=== PATIENT | female | born 1950 | race Caucasian/White ===

== ENCOUNTER 2016-12-28 21:53 | Emergency (ER) | payer OTHER ==
--- NOTE | 2016-12-28 23:02 | ED ORDER SUMMARY ---
..... Patient: TODD ROMERO OrderSheet [facility] VisitID: [id number] [address] [place] [address] 66y, F Registration Date/Time: 12/28/2016 ORDER SHEET Weight: 72.5 kg (stated) Allergies: No Known Drug Allergy GENERAL ORDERS: CT Head wo Cont Urgent (22:34 12/28/2016 HBivens A.R.N.P.) (Ack 22:37 IJurca ER Tech1) (22:56 HBivens A.R.N.P.) (Cancelled: Other22:56 HBivens A.R.N.P.) CT Sinus/Facial Bones wo Cont Urgent (22:35 12/28/2016 HBivens A.R.N.P.) (Ack 22:37 IJurca ER Tech1) (22:56 HBivens A.R.N.P.) (Cancelled: Other22:56 HBivens A.R.N.P.) MEDICATION ORDERS: Tdap IM 0.5 mL (NOW, per protocol) (22:27 12/28/2016 DDean R.N. per protocol) (Ack 22:30 MWinterer R.N.) (23:24 DDean R.N.) IV FLUIDS: ORDER SHEET NOTES: [Electronically signed by Edna CaseRSdNSdPSd (23:20 12/28/2016)] [Electronically signed by Graciela Corbett R.N. (23:25 12/28/2016)] [Electronically locked/signed by Graciela Corbett R.N. (23:25 12/28/2016)]
--- NOTE | 2016-12-28 23:02 | ED CLINICAL REPORT ---
Clinical Report - Physicians/Mid Levels [facility] [address] [place] [address] 12/28/2016 21:56 Patient: TODD ROMERO Time Seen: 22:20; upon arrival, initial patient contact, initial documentation, patient care assumed. Arrived- By private vehicle. Historian- patient and friend. HISTORY OF PRESENT ILLNESS Chief Complaint: INJURY TO HEAD. Location of injuries- face. The injury occurred just prior to arrival. (parking lot). Fell while walking and landed on the ground; tripped (tripped over a log in a parking lot). The patient complains of moderate pain. The patient sustained a moderate blow to the head. No neck pain, loss of consciousness or seizure. Not dazed. REVIEW OF SYSTEMS No loss of vision, chest pain or difficulty breathing. She sustained skin laceration. PAST HISTORY See nurses notes. PAST MEDICAL HX: Hypertension. Last tetanus: (20 years ago). SURGERY HX: . Tetanus immunization status is unknown. Anxiety problems. Alcoholism. SOCIAL HISTORY Never smoker. Alcohol use. Patient is a recovering alcoholic. No drug use. No recent travel. Is a local resident. FAMILY HISTORY No significant family medical history. ADDITIONAL NOTES The nursing notes have been reviewed with agreement regarding the chief complaint, HPI, ROS, PMH and patient medications and allergies. PHYSICAL EXAM Vital Signs: 12/28/2016 22:10 BP: 129/79. HR: 75. RR: 22. O2 saturation: 97%. Temp: 98.7 F. Pain level now: 5/10. Have been reviewed as normal and appear to be correct. Appearance: Alert. Anxious. No acute distress. (pt appears under the influence, pt wearing clothes under gown). Head: Head tender. Swelling of head present. Eyes: Pupils equal, round and reactive to light. EOM intact. Left periorbital area: mild tenderness, moderate swelling, subcutaneous 1.0 cm laceration, multiple small abrasions and large ecchymosis of the lateral aspect and supraorbital and infraorbital area of the periorbital area. SEE LACERATION PROCEDURE NOTE #1. No erythema, puncture wound or foreign body. No deformity. No entrapment of extraocular muscles or gaze palsy. ENT: No dental injury. Pharynx normal. Neck: Painless ROM. Non-tender. CVS: Normal heart rate and rhythm. Heart sounds normal. Pulses normal. Respiratory: Breath sounds normal. Chest nontender. Abdomen: Soft and nontender. No organomegaly. Back: No tenderness. ROM normal. Skin: Skin intact. Skin warm and dry. Normal skin color. Normal skin turgor. Extremities: Abnormal inspection. Extremities not atraumatic. Pelvis stable. No lower extremity edema. (pt refusing to take off pants, stating she was embarrassed and she knows they are alright). Neuro: Oriented X 3. Mood/affect normal. Speech normal. No motor deficit. Normal gait. No sensory deficit. PROGRESS AND PROCEDURES Laceration Repair: Location: face. Length: 1 cm. Complexity: simple (closed with tissue adhesive). Wound depth/shape- subcutaneous and linear and involving fascia. Contamination present. It is not clean. No foreign body or contused tissue present. No tissue loss. Exam note: wood stuck in face, but none seen in actual lac. Distal neuro/vascular/tendon status normal. Tendon not examined. No tendon deficit or laceration or tendon injury. Prepped with Betadine. Wound explored, cleansed, irrigated and examined to the base in bloodless field with normal saline. Wound not debrided. wood picked out of skin around lac, but none in lac itself. Closure of superficial layer: (dermabond). Skin adhesive used. Post-procedure: she is stable and there are no complications. Bleeding is controlled and neuro-vascular status is intact distal to the wound. Tetanus immunization given. Course of Care: called into room by pt's friend, pt telling me she is having major anxiety over having the ct done, and she would like sedative, request denied with explanation and pt agreed, pt stating she may start screaming and have full blown panic attack in ct, agreed to cancel ct, pt to go home with friend for head watch. Patient counseled regarding the patient's stable condition and diagnosis. 23:01. Differential Diagnosis: Other possible considerations: fall, head injury, fx, lacs, abrasions, contusions. Above considerations are based on history and physical exam. Differential diagnosis was discussed with patient. Disposition: Discharged home in good and improved condition (23:01). Condition: good and stable. CLINICAL IMPRESSION Fall on same level by tripping. Single deep laceration to the left periorbital area.Treatment of laceration not delayed. No infection or foreign body present. Single contusion with soft tissue hematoma and abrasion to the left periorbital area. INSTRUCTIONS Apply ice for 20 minutes four times a day for two days until better. Don't apply ice directly to skin. Protect wound and keep wound area clean. Soak in warm soapy water. Warnings: HEAD INJURY PRECAUTIONS: An observer must check on the patient frequently for the next 24 hours to confirm that the patient responds as expected, is not confused, has no new weakness or numbness, and has no other problems. TETANUS: You were given a tetanus shot during your visit. Make a note for future reference. GENERAL WARNINGS: Return or contact your physician immediately if your condition worsens or changes unexpectedly, if not improving as expected, or if other problems arise. Specifically return if problem worsens. Follow-up: Follow up with your doctor in about three days even if well and for wound check. Call for an appointment. Summary of care provided to patient. Understanding of the discharge instructions verbalized by patient. (Electronically signed by Edna Case A.R.N.P. 12/28/2016 23:20)
--- NOTE | 2016-12-28 23:02 | ED ORDER SUMMARY ---
..... Patient: TODD ROMERO OrderSheet [facility] VisitID: [id number] [address] [place] [address] 66y, F Registration Date/Time: 12/28/2016 ORDER SHEET Weight: 72.5 kg (stated) Allergies: No Known Drug Allergy GENERAL ORDERS: CT Head wo Cont Urgent (22:34 12/28/2016 HBivens A.R.N.P.) (Ack 22:37 IJurca ER Tech1) (22:56 HBivens A.R.N.P.) (Cancelled: Other22:56 HBivens A.R.N.P.) CT Sinus/Facial Bones wo Cont Urgent (22:35 12/28/2016 HBivens A.R.N.P.) (Ack 22:37 IJurca ER Tech1) (22:56 HBivens A.R.N.P.) (Cancelled: Other22:56 HBivens A.R.N.P.) MEDICATION ORDERS: Tdap IM 0.5 mL (NOW, per protocol) (22:27 12/28/2016 DDean R.N. per protocol) (Ack 22:30 MWinterer R.N.) (23:24 DDean R.N.) IV FLUIDS: ORDER SHEET NOTES: [Electronically signed by Edna CaseRSdNSdPSd (23:20 12/28/2016)] [Electronically signed by Graciela Corbett R.N. (23:25 12/28/2016)] [Electronically locked/signed by Graciela Corbett R.N. (23:25 12/28/2016)]
--- NOTE | 2016-12-28 23:02 | ED NURSING NOTES ---
Clinical Report - Nurses [facility] [address] [place] [address] 12/28/2016 21:56 Patient: TODD ROMERO TRIAGE Triage time 2210. Acuity: LEVEL 3. Chief Complaint: FALL (slipped/tripped on log in parking lot. hit left side of face and chin on ground. Has 2 inch lac to left eye brow, abrasions and swelling to left side of face. Crack visable in front tooth). JACKIE COMA SCORE: [place] Coma Scale: 15- eyes open spontaneously (4); best verbal response- oriented x 4 (5); best motor response- obeys commands (6). --22:25 Graciela Corbett R.N. 22:10 12/28/16. BP: 129/79. HR: 75. RR: 22. O2 saturation: 97%. Temp: 98.7 F. Pain level now: 02/20. --22:25 Graciela Corbett R.N. Weight: 72.5 kg stated. Height/Length: 65 inches Per Patient. BMI: 26.6. --22:21 Graciela Corbett R.N. Medications Furosemide Oral 5mg, daily. --22:24 Graciela Corbett R.N. high blood pressure medicine. --22:25 Graciela Corbett R.N. Allergies No Known Drug Allergy. --22:23 Graciela Corbett R.N. History Arrived by private vehicle. Historian: patient. Accompanied by friend. No primary care physician. Location of injuries: left cheek, left periorbital area, left eyebrow area, left knee and left leg. No loss of consciousness. No neck pain. PAST MEDICAL HX: Hypertension. Last tetanus: (20 years ago). SURGERY HX: . SOCIAL HX: Never smoker. Alcohol use. (sober for 8 years). --22:25 Graciela Corbett R.N. Interventions ID band on patient. To treatment room. --22:25 Graciela Corbett R.N. PHYSICAL ASSESSMENT 22:26 12/28/16. Ambulatory to room. Patient gowned. GENERAL / NEURO / PSYCH: Alert. Oriented X 4. HEENT: Left cheek: abrasion. Left eyebrow area: tenderness and subcutaneous 2.0 cm laceration. RESPIRATORY: Respirations not labored. CVS: Capillary refill less than 2 seconds. EXTREMITIES: Left leg: abrasion. SKIN: Skin is warm and dry. --22:26 Graciela Corbett R.N. NURSING PROGRESS NOTES 22:15. Cold pack applied. Patient gowned. Patient identifiers checked. Call light placed in reach. Side rails up. Bed placed in lowest position. --22:27 Graciela Corbett R.N. 22:45. WOUND REPAIR: Wound repair performed by INJECTION MOLD TOOLING TECHNICIAN. Assisted by one tech. The wound is located on the (left eyebrow). Preparation. Wound cleansed per INJECTION MOLD TOOLING TECHNICIAN with sterile saline and irrigated per INJECTION MOLD TOOLING TECHNICIAN with sterile saline using a syringe. Procedure: wound repaired with skin adhesive. Post-procedure: she was stable, no complications, bleeding controlled and neuro-vascular status intact distal to wound. Total time of assist / procedure: 15 minutes. --23:11 Graciela Corbett R.N. 23:00 12/28/2016 TDAP IM 0.5 mL given. (Lot#: [id number], expiration date: 07/21/2018, Deputy District Customs Director: [employer]). Given in the left deltoid. Vaccine information statement provided to the patient (SUNSHINE Robb). --23:24 Graciela Corbett R.N. DISPOSITION / DISCHARGE 23:08. Condition at departure: improved and stable. No learning barriers present. Discharge instructions provided and reviewed with english drawer and the patient. Reviewed warnings (head injury). Reviewed medication(s) (tylenol or motrin for pain). Reviewed wound care instructions (ice, rest,). Patient and english drawer verbalized understanding. Written instructions provided in [place]. The patient was discharged home and accompanied by english drawer. She left the Emergency Department ambulatory and via private vehicle. Director Business Intelligence driving. JACKIE COMA SCORE: [place] Coma Scale: 15- eyes open spontaneously (4); best verbal response- oriented x 4 (5); best motor response- obeys commands (6). --23:13 Graciela Corbett R.N. 23:08 12/28/16. BP: 134/75. HR: 72. RR: 18. O2 saturation: 99%. Temp: deferred. Pain level now: 11/23. --23:13 Graciela Corbett R.N. Locked/Released at 12/28/2016 23:25 by Graciela Corbett R.N.
--- NOTE | 2016-12-28 23:02 | ED NURSING NOTES ---
Clinical Report - Nurses [facility] [address] [place] [address] 12/28/2016 21:56 Patient: TODD ROMERO TRIAGE Triage time 2210. Acuity: LEVEL 3. Chief Complaint: FALL (slipped/tripped on log in parking lot. hit left side of face and chin on ground. Has 2 inch lac to left eye brow, abrasions and swelling to left side of face. Crack visable in front tooth). JACKIE COMA SCORE: [place] Coma Scale: 15- eyes open spontaneously (4); best verbal response- oriented x 4 (5); best motor response- obeys commands (6). --22:25 Graciela Corbett R.N. 22:10 12/28/16. BP: 129/79. HR: 75. RR: 22. O2 saturation: 97%. Temp: 98.7 F. Pain level now: 02/20. --22:25 Graciela Corbett R.N. Weight: 72.5 kg stated. Height/Length: 65 inches Per Patient. BMI: 26.6. --22:21 Graciela Corbett R.N. Medications Furosemide Oral 5mg, daily. --22:24 Graciela Corbett R.N. high blood pressure medicine. --22:25 Graciela Corbett R.N. Allergies No Known Drug Allergy. --22:23 Graciela Corbett R.N. History Arrived by private vehicle. Historian: patient. Accompanied by friend. No primary care physician. Location of injuries: left cheek, left periorbital area, left eyebrow area, left knee and left leg. No loss of consciousness. No neck pain. PAST MEDICAL HX: Hypertension. Last tetanus: (20 years ago). SURGERY HX: . SOCIAL HX: Never smoker. Alcohol use. (sober for 8 years). --22:25 Graciela Corbett R.N. Interventions ID band on patient. To treatment room. --22:25 Graciela Corbett R.N. PHYSICAL ASSESSMENT 22:26 12/28/16. Ambulatory to room. Patient gowned. GENERAL / NEURO / PSYCH: Alert. Oriented X 4. HEENT: Left cheek: abrasion. Left eyebrow area: tenderness and subcutaneous 2.0 cm laceration. RESPIRATORY: Respirations not labored. CVS: Capillary refill less than 2 seconds. EXTREMITIES: Left leg: abrasion. SKIN: Skin is warm and dry. --22:26 Graciela Corbett R.N. NURSING PROGRESS NOTES 22:15. Cold pack applied. Patient gowned. Patient identifiers checked. Call light placed in reach. Side rails up. Bed placed in lowest position. --22:27 Graciela Corbett R.N. 22:45. WOUND REPAIR: Wound repair performed by DIRECT MARKETING COORDINATOR. Assisted by one tech. The wound is located on the (left eyebrow). Preparation. Wound cleansed per DIRECT MARKETING COORDINATOR with sterile saline and irrigated per DIRECT MARKETING COORDINATOR with sterile saline using a syringe. Procedure: wound repaired with skin adhesive. Post-procedure: she was stable, no complications, bleeding controlled and neuro-vascular status intact distal to wound. Total time of assist / procedure: 15 minutes. --23:11 Graciela Corbett R.N. 23:00 12/28/2016 TDAP IM 0.5 mL given. (Lot#: [id number], expiration date: 07/21/2018, Wheelchair Van Driver: [employer]). Given in the left deltoid. Vaccine information statement provided to the patient (SUNSHINE Robb). --23:24 Graciela Corbett R.N. DISPOSITION / DISCHARGE 23:08. Condition at departure: improved and stable. No learning barriers present. Discharge instructions provided and reviewed with bessemer converter blower and the patient. Reviewed warnings (head injury). Reviewed medication(s) (tylenol or motrin for pain). Reviewed wound care instructions (ice, rest,). Patient and bessemer converter blower verbalized understanding. Written instructions provided in [place]. The patient was discharged home and accompanied by bessemer converter blower. She left the Emergency Department ambulatory and via private vehicle. Senior Ux Designer driving. JACKIE COMA SCORE: [place] Coma Scale: 15- eyes open spontaneously (4); best verbal response- oriented x 4 (5); best motor response- obeys commands (6). --23:13 Graciela Corbett R.N. 23:08 12/28/16. BP: 134/75. HR: 72. RR: 18. O2 saturation: 99%. Temp: deferred. Pain level now: 11/23. --23:13 Graciela Corbett R.N. Locked/Released at 12/28/2016 23:25 by Graciela Corbett R.N.
--- NOTE | 2016-12-28 23:26 | ED MAR SUMMARY ---
..... Medication Administration Record [facility] [address] [place] [address] Patient: TODD ROMERO Visit ID: [id number] 66y, F Weight: 72.5 kg Height/Length: 65 in BMI: 26.6 ALLERGIES: No Known Drug Allergy Given 23:00 12/28/2016 Aric, Graciela RSdN. Medication Administered: TDAP [IM], Dose: 0.5 mL IM. Medication Ordered: Tdap IM 0.5 mL (NOW, per protocol).
--- NOTE | 2016-12-28 23:26 | ED MED RECONCILIATION SUMMARY ---
Patient: TODD ROMERO Medication Reconciliation Report [facility] VisitID: [id number] [address] [place] [address] 66y, F Registration Date/Time: 12/28/2016 Weight: 72.5 kg Height/Length: 65 in. BMI: 26.6 ALLERGIES: No Known Drug Allergy The patient's Home Medications are listed below: THE FOLLOWING MEDICATIONS NEED TO BE RECONCILED: Furosemide Oral 5mg, daily high blood pressure medicine The source(s) of the original Home Medication information: Not obtained. The following Medications were given to the patient in the Emergency Department: TDAP [IM] IM 0.5 mL, administered: 12/28/2016 11:00:00 PM The following Medications were prescribed to the patient: None.
--- NOTE | 2016-12-28 23:26 | ED MED RECONCILIATION SUMMARY ---
Patient: TODD ROMERO Medication Reconciliation Report [facility] VisitID: [id number] [address] [place] [address] 66y, F Registration Date/Time: 12/28/2016 Weight: 72.5 kg Height/Length: 65 in. BMI: 26.6 ALLERGIES: No Known Drug Allergy The patient's Home Medications are listed below: THE FOLLOWING MEDICATIONS NEED TO BE RECONCILED: Furosemide Oral 5mg, daily high blood pressure medicine The source(s) of the original Home Medication information: Not obtained. The following Medications were given to the patient in the Emergency Department: TDAP [IM] IM 0.5 mL, administered: 12/28/2016 11:00:00 PM The following Medications were prescribed to the patient: None.
--- NOTE | 2016-12-28 23:26 | ED DISCHARGE INSTRUCTIONS ---
Patient: TODD ROMERO General Instructions [facility] VisitID: [id number] [place] [address] 66y, F Registration Date/Time: 12/28/2016 Fall on same level by tripping. Single deep laceration to the left periorbital area.Treatment of laceration not delayed. No infection or foreign body present. Single contusion with soft tissue hematoma and abrasion to the left periorbital area. INSTRUCTIONS Apply ice for 20 minutes four times a day for two days until better. Don't apply ice directly to skin. Protect wound and keep wound area clean. Soak in warm soapy water. Warnings: HEAD INJURY PRECAUTIONS: An observer must check on the patient frequently for the next 24 hours to confirm that the patient responds as expected, is not confused, has no new weakness or numbness, and has no other problems. TETANUS: You were given a tetanus shot during your visit. Make a note for future reference. GENERAL WARNINGS: Return or contact your physician immediately if your condition worsens or changes unexpectedly, if not improving as expected, or if other problems arise. Specifically return if problem worsens. Follow-up: Follow up with your doctor in about three days even if well and for wound check. Call for an appointment. Summary of care provided to patient. Understanding of the discharge instructions verbalized by patient. ADDITIONAL INFORMATION Mechanical Fall You have had a fall today. It appears that the cause is mechanical. That means that you slipped, tripped or lost your balance. If your fall had been due to fainting or a seizure, further tests would be required. Home Care: Rest today and resume your normal activities when you are feeling back to normal. If you were injured during the fall, follow the advice from your doctor regarding care of your injury. You may use acetaminophen (Tylenol) or ibuprofen (Motrin, Advil) to control pain, unless another pain medicine was prescribed. [NOTE: If you have chronic liver or kidney disease or ever had a stomach ulcer or GI bleeding, talk with your doctor before using these medicines.] Fall Prevention: Was there anything that caused your fall that can be fixed, removed, or replaced? Make your home safe by keeping walkways clear of objects you may trip over. Use non-slip pads under rugs. Do not walk in poorly lit areas. Do not stand on chairs or wobbly ladders. Use caution when reaching overhead or looking upward. This position can cause a loss of balance. Be sure your shoes fit properly, have non-slip bottoms and are in good condition. Be cautious when going up and down curbs, and walking on uneven sidewalks. If your balance is poor, consider using a cane or walker. Stay as active as you can. Balance, flexibility, strength, and endurance all come from exercise. They all play a role in preventing falls. Follow Up with your doctor or as advised by our staff. Get Prompt Medical Attention if any of the following occur: Repeated mechanical falls, or unexplained falls Dizziness, fainting or seizure Severe headache Chest pain or shortness of breath Palpitations (very rapid or very slow or irregular heartbeat) Blood in vomit, stools (black or red color) Weakness of an arm or leg or one side of the face Difficulty with speech or vision Laceration, Face (Suture Or Tape) Alaceration is a cut through the skin. This will require stitches if it is deep. Minor cuts may be treated with surgical tape. Home care The following guidelines will help you care for your laceration at home: If a bandage was applied and it becomes wet or dirty, replace it. Otherwise, leave it in place for the first 24 hours, then change it once a day or as directed. If sutures were used, clean the wound daily: After removing the bandage, wash the area with soap and water. Use a wet cotton swab to loosen and remove any blood or crust that forms. After cleaning, keep the wound clean and dry. Talk with your doctor before applying any antibiotic ointment to the wound. Reapply a fresh bandage. You may remove the bandage to shower as usual after the first 24 hours, but do not soak the area in water (no swimming) until the sutures are removed. If surgical tape was used, keep the area clean and dry. If it becomes wet, blot it dry with a towel. The doctor may prescribe an antibiotic cream or ointment to prevent infection. Do not stop taking this medication until you have have finished the prescribed course or the doctor tells you to stop. The doctor may also prescribe medications for pain. Follow the doctor's instructions for taking these medications.If you have chronic liver or kidney disease or ever had a stomach ulcer or GI bleeding, talk with your doctor before using these medicines. Follow-up care Follow up with your health care provider. Most facial cuts heal in five days with no problem. However, even with proper treatment, a wound infection sometimes occurs. Therefore, check the wound daily for the warning signs listed below. Stitches should not be left in the face for more thanfivedays; otherwise, permanent stitch mirza may form. If surgical tape closures were used, you may remove them yourself afterfivedays, if they have not fallen off by then. When to seek medical care Get prompt medical attention if any of these occur: Increasing pain in the wound Redness, swelling, or pus coming from the wound If sutures come apart or fall out before 5 days If the surgical tape closures fall off before 5 days, or the wound edges reopen Fever of 100.4F (38C) or higher, or as directed by your health care provider Bleeding not controlled by direct pressure Laceration, Face(Skin Glue) A laceration is a cut through the skin. A laceration on your face hasbeen closed with a type of skin glue. Home Care Medications: Acetaminophen (Tylenol) or ibuprofen (Motrin, Advil) may be taken for pain, unless another pain medicine was prescribed. NOTE: If you have chronic liver or kidney disease or ever had a stomach ulcer or GI bleeding, talk with your doctor before using these medications. General Care: Keep the wound clean and dry. You may shower or bathe as usual, but do not use soaps, lotions, or ointments on the wound area. Do not scrub the wound. After bathing, pat the wound dry with a soft towel. Do not scratch, rub, or pick at the film. Do not place tape directly over the film. Do not apply liquids (such as peroxide), ointments, or creams to the wound while the film is in place. Most facialskin wounds heal without problems. However, an infection sometimes occurs despite proper treatment. Therefore, watch for the signs of infection listed below. Follow Up as directed by the doctor or our staff. The skin glue film will fall off naturally in 5 to 10 days. Get Prompt Medical Attention if any of the following occur: Signs of infection: Fever of 100.4F (38) or higher, or as directed by your healthcare provider Increasing pain in the wound Increasing redness or swelling Pus coming from the wound Wound bleeds more than a small amount or bleeding doesnt stop Wound edges come apart Eye Contusion You have a CONTUSION of your eye. This can cause swelling and bruising of the lids (black eye) and may also cause bleeding in the white part of the eye. The bruising and lid swelling may increase over the first 12 hours. The lid swelling should start to go down after 1-2 days. The lid bruising may take 1-2 weeks to disappear. Home Care: Make an ice pack (ice cubes in a plastic bag, wrapped in a towel) and apply for 20 minutes every 1-2 hours the first day. Continue this 3-4 times a day until the swelling starts to go down. You may use acetaminophen (Tylenol) or ibuprofen (Motrin, Advil) to control pain, unless another pain medicine was prescribed. [NOTE:If you have chronic liver or kidney disease or ever had a stomach ulcer or GI bleeding, talk with your doctor before using these medicines.] Follow Up with your doctor or this facility if you are not improving within the next THREE days. [NOTE: If X-rays were taken, they will be reviewed by a radiologist. You will be notified of any new findings that may affect your care.] Get Prompt Medical Attention if any of the following occur: Increasing eye pain Unable to open eyelid after 2 days, due to swelling Any sudden changes in your vision Light flashes Floaters (small dots or strings that seem to be moving across your field of vision) Eye pain, redness, or discharge from your eyelid Blurriness that lasts more than 24 hours Dark spots in your field of vision Halos around lights Dimness of vision Partial or complete loss of vision Head Injury With Wake-Up (Adult) You have had a head injury. It does not appear serious at this time. Symptoms of a more serious problem (concussion, bruising, or bleeding in the brain) may appear later. Therefore, watch for the WARNING SIGNS listed below. Home Care: During the next 24 hours someone must stay with you. This person should wake you every 2 hours to check for the signs below. If you have swelling of the face or scalp, apply an ice pack (ice cubes in a plastic bag, wrapped in a towel) for 20 minutes every 1-2 hours until the swelling starts to go down. Do not use aspirin or ibuprofen (Motrin, Advil) after a head injury. You may use acetaminophen (Tylenol) to control pain, unless another pain medicine was prescribed. [NOTE: If you have chronic liver or kidney disease or ever had a stomach ulcer or GI bleeding, talk with your doctor before using these medicines.] For the next 24 hours: Do not take alcohol, sedatives, or medicines that make you sleepy. Do not drive or operate machinery. Avoid strenuous activities. No lifting or straining. If you have had any symptoms of a concussion today (nausea, vomiting, dizziness, confusion, headache, memory loss, or you were knocked out), do not return to sports or any activity that could result in another head injury until all symptoms are gone and you have been cleared by your doctor. A second head injury before fully recovering from the first one can lead to serious brain injury. Follow Up with your doctor if symptoms are not improving after 24 hours, or as directed. [NOTE: A radiologist will review any X-rays or CT scans that were taken. We will notify you of any new findings that may affect your care.] Get Prompt Medical Attention if any of the following WARNING SIGNS occur: Repeated vomiting Severe or worsening headache or dizziness Unusual drowsiness, or unable to awaken as usual Confusion or change in behavior or speech, memory loss, blurred vision Convulsion (seizure) Increasing scalp or face swelling Redness, warmth or pus from the swollen area Fluid drainage or bleeding from the nose or ears Diphtheria Toxoid Adsorbed, Pertussis Vaccine, Acellular (Adsorbed), Tetanus Toxoid, Adsorbed Suspension for injection What is this medicine? DIPHTHERIA and TETANUS TOXOIDS; PERTUSSIS VACCINE (dif THEER ee uh and TET n us TOK soids; per TUS iss vak SEEN) is used to prevent diphtheria, tetanus, and pertussis infections. How should I use this medicine? This vaccine is for injection into a muscle. It is given by a health care transition manager. A copy of Vaccine Information Statements will be given before each vaccination. Read this sheet carefully each time. The sheet may change frequently. Talk to your logistics clerk regarding the use of this vaccine in children. While the DTP vaccine may be given to children ages 6 weeks to 7 years and the Tdap vaccine may be given to children at least 10 years old, precautions do apply. What side effects may I notice from receiving this medicine? Side effects that you should report to your doctor or health care transition manager as soon as possible: allergic reactions like skin rash, itching or hives, swelling of the face, lips, or tongue breathing problems fever of 103 degrees F or more flu-like symptoms inconsolable crying infection pain, tingling, numbness in the hands or feet seizures swelling of arm or leg that was injected unusually weak or tired Side effects that usually do not require immediate medical attention (report these side effects to your doctor or health care transition manager if they continue or are bothersome): fussy, irritable loss of appetite fever of 102 degrees F or less pain, tenderness, redness, swelling, or a 'knot' at site where injected vomiting What may interact with this medicine? immune globulin medicines that suppress your immune function like adalimumab, anakinra, infliximab medicines to treat cancer medicines that treat or prevent blood clots like warfarin, enoxaparin, and dalteparin steroid medicines like prednisone or cortisone What if I miss a dose? It is important not to miss your dose. Call your doctor or health care transition manager if you are unable to keep an appointment. Where should I keep my medicine? This drug is given in a hospital or clinic and will not be stored at home. What should I tell my health care provider before I take this medicine? They need to know if you have any of these conditions: blood disorders like hemophilia fever or infection immune system problems neurologic disease seizures an unusual or allergic reaction to vaccines, thimerosal, latex, other medicines, foods, dyes, or preservatives or trying to get breast-feeding What should I watch for while using this medicine? See your health care provider for all shots of this vaccine as directed. To have protection from infection, you must have 3 shots of this vaccine plus boosters as needed. Tell your doctor right away if you have any serious or unusual side effects after getting this vaccine. You have been given the following additional information: Fall, Mechanical Laceration, Face (Suture Or Tape) Laceration, Face (Skin Glue) Contusion, Eye HEAD INJURY with Wake-Up (Adult) Diphtheria Toxoid Adsorbed, Pertussis Vaccine, Acellular (Adsorbed), Tetanus Toxoid, Adsorbed Suspension for injection (Electronically signed by Edna Case A.R.N.P. 12/28/2016 23:20)
--- NOTE | 2016-12-28 23:26 | ED MAR SUMMARY ---
..... Medication Administration Record [facility] [address] [place] [address] Patient: TODD ROMERO Visit ID: [id number] 66y, F Weight: 72.5 kg Height/Length: 65 in BMI: 26.6 ALLERGIES: No Known Drug Allergy Given 23:00 12/28/2016 Aric, Graciela RSdN. Medication Administered: TDAP [IM], Dose: 0.5 mL IM. Medication Ordered: Tdap IM 0.5 mL (NOW, per protocol).
== END 2016-12-28 23:08 | disposition home or self-care (01) ==
LOC: ED SRH 21:53
DX: S01.112A Laceration without foreign body of left eyelid and periocular area, initial encounter (principal); S00.12XA Contusion of left eyelid and periocular area, initial encounter; W01.198A Fall on same level from slipping, tripping and stumbling with subsequent striking against other object, initial encounter; Y93.01 Activity, walking, marching and hiking; Y99.8 Other external cause status; Y92.481 Parking lot as the place of occurrence of the external cause; I10 Essential (primary) hypertension; Z79.899 Other long term (current) drug therapy; Z23 Encounter for immunization
CPT/HCPCS: 82708